=== PATIENT | female | born 1955 | race Asian ===

== ENCOUNTER 2017-01-12 14:27 | Emergency (ER) | payer MEDICAID ==
[~2017-01-12] VITALS: Ht 157.5 cm; Wt 67.1 kg
[2017-01-12] MEDS ORDERED: CHOL100043 PO (14:38)
--- NOTE | 2017-01-12 14:49 | NUR ---
PT IS IN ROOM #2A. DR VILLANUEVA EVALUATED THE PT.
--- NOTE | 2017-01-12 15:00 | NUR ---
PT WAS D/C TO HOME. D/C INSTRUCTIONS GIVEN TO THE PT AND TO HER ESTEFANIER.
[2017-01-12 15:02] VITALS: BP 151/84
== END 2017-01-12 15:03 | disposition home or self-care (01) ==
LOC: ER 14:28
DX: G51.0 Bell's palsy (principal)
CPT/HCPCS: A4663